=== PATIENT | male | born 1955 | race Caucasian/White ===

== ENCOUNTER → 2016-10-29 | Outpatient (CLI) | payer BC ==
[~2016-10-29] MED LIST: ASPI81CH CHEW; ASPI81TA11 PO; ATEN-100 PO; ATEN25TA PO; ESCI20TA PO; GLUC250C5 PO; HYDR-2768 PO; HYDR25TA5 PO; LISI-519 PO; OMEP20TA39 PO; PRIN5TAB PO; ROSU1TAB8 PO; SIMV40 PO; TAB-TAB PO; TEMA15 PO; TEMA15CA PO; VENL37.5 PO; VITA100018 PO
--- NOTE | 2016-10-30 12:20 | RADRPT ---
EXAM DATE/TIME: 10/29/2016 00:00 [facility] COMPARISON: No previous studies available for comparison. INDICATIONS : Right renal mass. FINDINGS: Reviewed patient outside studies in previous procedures. 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 Due to the fact that this is the patient's remaining functional kidney and there are multiple lesions , I do not feel we should undertake multicentric cryoablation. Patient probably should be referred to a tertiary care center for further consideration. CONCLUSION: Due to the patient's clinical situation and presentation, recommend referral to a tertiary care center for treatment of the presumed multifocal disease in the patient's remaining right kidney. Young Sloan MD on October 30, 2016 at 12:03 Board Certified Radiologist. This report was verified electronically.
== END ==
LOC: HRAD 13:06
PROVIDERS: ATTEND Internal Medicine Hematology & Oncology
DX: N28.89 Other specified disorders of kidney and ureter (principal)

== ENCOUNTER → 2016-10-31 | Outpatient (CLI) | payer BC ==
[~2016-10-31] VITALS: Ht 170.2 cm; Wt 117.7 kg
[~2016-10-31] MED LIST changes: -ASPI81TA11 PO; -ATEN-100 PO; +CHLORHEXIDINE GLUCONATE 2 % 1 PACK (2 CLOTHS) TOPICAL PRN; -ESCI20TA PO; -GLUC250C5 PO; -HYDR-2768 PO; +INSULIN HUMAN REGULAR 1,000 UNITS/10 ML VIAL SQ PRN; +LACTATED RINGER'S 1000 ML IV PRN; +METOPROLOL TARTRATE 25 MG TAB PO PRN; -OMEP20TA39 PO; +ONDANSETRON HCL 4 MG/2 ML VIAL IV PUSH ONE; +POVIDONE IODINE 5% (ANTISEPSIS KIT) 4 APPLICATIONS EACH NARE PRN; -PRIN5TAB PO; +PROPOFOL 200 MG/20 ML AMP IV ONE; +SIMETHICONE SUSP DROPS 40 MG/0.6 ML 30 ML BTL ONE; -SIMV40 PO; +SODIUM CHLORID 0.9% 500 ML IV PRN; -TAB-TAB PO; -TEMA15 PO; -VITA100018 PO
[2016-10-31 10:03] VITALS: BP 115/74; PULSE 61; RESP 18; TEMP 98.6; O2SAT 94
[2016-10-31 11:18] VITALS: TEMP 98.8
--- NOTE | 2016-10-31 11:27 | PD.PROCEDR ---
GI Procedure REFERRING PHYSICIAN Dr. Marc PROCEDURE PERFORMED EGD with biopsy followed by colonoscopy with snare polypectomy and biopsy INDICATION FOR PROCEDURE GERD and screening colonoscopy PROCEDURE: The procedure, risks and benefits were discussed with Mr. Milner and informed consent was obtained. Anesthesia sedated him with Diprivan. He was placed in the left lateral decubitus position. EGD: The Pentax videoscope was introduced through the oropharynx and advanced to the second portion of the duodenum under direct visualization. Retroflexion was performed in the stomach. FINDINGS: The esophagus there was distal esophageal mucosal hyperplasia with an irregular Z line this was biopsied The stomach there was a small hiatal hernia there was punctate patchy erythema in the antrum but no ulcerations or erosions there was quite a bit of edema throughout the gastric mucosa though antral biopsies were taken from the antrum for further evaluation The duodenum there was a small superficial ulcer in the duodenal bulb with a erythemic nodule these were biopsied Colonoscopy: The Pentax videoscope was introduced through the rectum and advanced to cecum where the ileocecal valve and appendiceal orifice were identified. Retroflexion was performed in the rectum. Colonic prep was fair FINDINGS: Colonic withdrawal time greater than 6 minutes as the scope was slowly withdrawn colonic mucosa was carefully inspected the patient was noted to have a moderate size sessile polyp in the proximal ascending colon this was excised using cold snare technique and it was retrieved for further evaluation there was a second smaller polyp in the descending colon this was excised using cold biopsy forceps otherwise colonic examination was unremarkable so as retroflexion in rectal examination ESTIMATED BLOOD LOSS: None SPECIMENS REMOVED: Esophageal gastric and duodenal followed by colonic samples COMPLICATIONS: None IMPRESSION: Gastroesophageal reflux disease Irregular Z line Hiatal hernia Gastritis Duodenal ulcer and duodenitis Colon polyps PLAN: Await biopsy Reflux precautions Resume omeprazole 20 mg twice a day Colonoscopy in 3 years Follow-up in clinic in 4 weeks David Luevano MD Oct 31, 2016 11:27
[2016-10-31 11:38] VITALS: BP 101/62; PULSE 58; RESP 16; O2SAT 98
--- NOTE | 2016-10-31 13:54 | EKG ---
Date Performed: 10/31/2016 Time Performed: 09:31:31 PTAGE: 61 years EKG: Sinus rhythm WITH OCCASIONAL VENTRICULAR PREMATURE COMPLEXES BORDERLINE ECG Compared to prior tracing no signific ant change PREVIOUS TRACING : 09/20/2015 12.15 DOCTOR: Jeffrey Wagner Interpretating Date/Time 10/31/2016 13:53:45
== END ==
LOC: HEND 08:57
PROVIDERS: ATTEND Internal Medicine Gastroenterology
DX: Z12.11 Encounter for screening for malignant neoplasm of colon (principal); D12.2 Benign neoplasm of ascending colon; K44.9 Diaphragmatic hernia without obstruction or gangrene; K26.9 Duodenal ulcer, unspecified as acute or chronic, without hemorrhage or perforation; K29.80 Duodenitis without bleeding; K21.0 Gastro-esophageal reflux disease with esophagitis; K29.70 Gastritis, unspecified, without bleeding; I10 Essential (primary) hypertension
CPT/HCPCS: 00810; 43239; 45385; 88305; 93005; J2405; J7120; 88312